=== PATIENT | male | born 1945 | race Caucasian/White ===

== ENCOUNTER 2018-12-14 09:11 | Inpatient (IN) | payer MEDICARE ==
[~2018-12-14] VITALS: Ht 175.3 cm; Wt 80.5 kg
[2018-12-14 09:51] LABS: BASOPHILS # (AUTO) 0.1 X10'3 (0-0.2); BASOPHILS % (AUTO) 0.8 % (0-1); EOSINOPHILS # (AUTO) 0.1 X10'3 (0-0.9); HEMATOCRIT 34.5 % (42.0-52.0); HEMOGLOBIN 11.9 g/dl (14.0-17.9); LYMPHOCYTES # (AUTO) 1.1 X10'3 (1.1-4.8); LYMPHOCYTES % (AUTO) 14.2 % (21-51); MEAN CORPUSCULAR HEMOGLOBIN 32.4 PG (27.0-31.0); MEAN CORPUSCULAR HGB CONC 34.4 g/dL (33.0-36.5); MEAN CORPUSCULAR VOLUME 94.3 FL (78-98); MEAN PLATELET VOLUME 7.3 FL (7.4-10.4); MONOCYTES # (AUTO) 0.7 X10'3 (0-0.9); MONOCYTES % (AUTO) 8.7 % (2-12); NEUTROPHILS # (AUTO) 5.6 X10'3 (1.8-7.7); NEUTROPHILS % (AUTO) 74.3 % (42-75); PLATELET COUNT 236 X10'3 (140-440); RED BLOOD COUNT 3.66 X10'6 (4.70-6.10); RED CELL DISTRIBUTION WIDTH 13.4 % (11.5-14.5); WHITE BLOOD COUNT 7.5 X10'3 (4.5-11.0)
[2018-12-14] MEDS ORDERED: diltiazem-D5W 125mg/125ml 125 ML IV ONE (09:59)
[2018-12-14] MEDS ORDERED: diltiazem 5mg/ml 5ml inj. IV ONE (10:00)
[2018-12-14] MEDS ORDERED: furosemide 10 MG/1 ML 10ml inj IV ONE (10:05)
[2018-12-14 11:24] LABS: ALANINE AMINOTRANSFERASE 109 U/L (12-78); ALBUMIN 2.9 G/DL (3.4-5.0); ALBUMIN/GLOBULIN RATIO 0.7 (1.1-1.5); ALKALINE PHOSPHATASE 111 IU/L (46-116); ANION GAP 11 (8-16); ASPARTATE AMINO TRANSFERASE 56 U/L (10-37); BILIRUBIN,TOTAL 0.8 MG/DL (0.1-1.0); BLOOD UREA NITROGEN 22 MG/DL (7-18); BUN/CREATININE RATIO 17.6 (5.4-32.0); CALCIUM 9.1 MG/DL (8.5-10.1); CHLORIDE 104 MMOL/L (99-107); CREATININE 1.25 MG/DL (0.60-1.10); GLUCOSE 233 MG/DL (70-104); SODIUM 140 MMOL/L (135-145); TOTAL CARBON DIOXIDE 24.8 MMOL/L (24-32); eGFR 57 ML/MIN
--- NOTE | 2018-12-14 11:34 | NUR ---
REFER TO PAPER CHARTING FROM 1O AM TO 1130 TODAY.
[2018-12-14] MEDS ORDERED: diltiazem-D5W 125mg/125ml 125 ML IV SCH (11:55)
[2018-12-14] MEDS ORDERED: ipratropium/albuterol 3ml nebule NEB PRN (11:55)
[2018-12-14] MEDS ORDERED: AMLO10TA PO (12:02)
[2018-12-14] MEDS ORDERED: METF1000 PO (12:02)
[2018-12-14] MEDS ORDERED: LOSA50TA3 PO (12:02)
[2018-12-14] MEDS ORDERED: SPIR25TA5 PO (12:02)
[2018-12-14] MEDS ORDERED: diltiazem-NS 100mg/100ml 125 ML IV SCH (12:07)
[2018-12-14] MEDS ORDERED: diltiazem-NS 100mg/100ml 100 ML IV ONE (12:10)
[2018-12-14 12:44] LABS: PARTIAL THROMBOPLASTIN TIME 39 SECONDS (22-32)
[2018-12-14] MEDS: diltiazem-NS 100mg/100ml 100 ML IV SCH (13:30)
[2018-12-14] MEDS ORDERED: HYDROcodone/acetaminophen 5mg/325mg tablet PO PRN (15:20)
[2018-12-14] MEDS ORDERED: potassium CL 10mEq/100ml bag 100 ML IV PRN ×2 (15:20)
[2018-12-14] MEDS ORDERED: metoclopramide 5 mg/ml inj IV PRN (15:20)
[2018-12-14] MEDS ORDERED: HYDROcodone/acetaminophen 10/325mg tab PO PRN (15:20)
[2018-12-14] MEDS ORDERED: potassium Cl 20 mEq SR tablet PO PRN ×2 (15:20)
[2018-12-14] MEDS ORDERED: magnesium 4gm in 100ml NS 100 ML IV PRN (15:20)
[2018-12-14] MEDS ORDERED: magnesium Cl slow-release 64mg tablet PO PRN (15:20)
[2018-12-14] MEDS ORDERED: magnesium 2GM in 50ml NS 50 ML IV PRN (15:20)
[2018-12-14] MEDS ORDERED: acetaminophen 325mg tablet PO PRN ×2 (15:20)
[2018-12-14] MEDS ORDERED: ondansetron/PF 4mg/2ml inj IV PRN (15:20)
[2018-12-14] MEDS ORDERED: bisacodyl 10mg suppository rectal RC PRN (15:20)
[2018-12-14] MEDS ORDERED: mag hydrox/Alum hydrox/simeth 30ml oral suspension PO PRN (15:20)
[2018-12-14] MEDS ORDERED: magnesium hydroxide 30ml (MOM) UD suspension PO PRN (15:20)
[2018-12-14] MEDS ORDERED: dextrose ORAL solution 15 GM/59 ML bottle PO PRN ×2 (15:35)
[2018-12-14] MEDS ORDERED: MESSAGE TO PHARMACY PO ONE (15:35)
[2018-12-14] MEDS ORDERED: glucagon, human recombinant 1mg kit SUBCUT PRN (15:35)
[2018-12-14] MEDS ORDERED: dextrose 50%-water 50ml dispensing syringe IV PRN ×2 (15:35)
[2018-12-14 16:27] LABS: PHOSPHORUS 2.9 MG/DL (2.3-4.5)
[2018-12-14 16:35] LABS: HEMOGLOBIN A1C 7.2 % (4.5-6.2)
--- NOTE | 2018-12-14 16:42 | NUR ---
HEALTH SUPPORT SPECIALIST IN ROOM FOR PROCEDURE.
--- NOTE | 2018-12-14 17:07 | NUR ---
DR FRIEND IN ROOM TO EVAL PT. ORDERS GIVEN FOR ABX FOR PNEUMONIA. NOTIFY DR REGARDING HAVING TO INCREASE THE OXYGEN TO KEEP SATS ELEVATED.
[2018-12-14] MEDS: CefTRIAXone/D5W-Rocephin 1gm 50 ML IV SCH ×3 (17:12→21:57)
--- NOTE | 2018-12-14 18:46 | NUR ---
Patient in room . I have received report from Kiley HENNESSY ED and had the opportunity to ask questions and assume patient care.
--- NOTE | 2018-12-14 18:50 | NUR ---
pt arrived on unit with all belongings, mobile tele monitor attached, visitor at bedside, oriented to room and unit, call light given
[2018-12-14 19:00] VITALS: BP 146/81
[2018-12-14 21:00] VITALS: BP 155/99
[2018-12-14] MEDS: insulin glargine (Lantus) pen - multi-dose SQ SCH (21:00)
[2018-12-14] MEDS ORDERED: temazepam 15mg capsule PO PRN (21:00)
[2018-12-14] MEDS: furosemide 40mg/4ml inj IV SCH (21:26)
[2018-12-14 23:00] VITALS: BP 149/97
[2018-12-15] VITALS (8 sets, daily range): BP systolic 122–151; BP diastolic 72–97
[2018-12-15] MEDS: diltiazem-NS 100mg/100ml 100 ML IV SCH ×2 (02:05→15:14)
[2018-12-15 05:22] LABS: HEMATOCRIT 31.4 % (42.0-52.0); HEMOGLOBIN 11.2 g/dl (14.0-17.9); MEAN CORPUSCULAR HGB CONC 35.6 g/dL (33.0-36.5); MEAN CORPUSCULAR VOLUME 92.6 FL (78-98); MEAN PLATELET VOLUME 7.1 FL (7.4-10.4); PLATELET COUNT 246 X10'3 (140-440); RED BLOOD COUNT 3.39 X10'6 (4.70-6.10); WHITE BLOOD COUNT 6.5 X10'3 (4.5-11.0)
[2018-12-15 05:38] LABS: ALBUMIN 2.7 G/DL (3.4-5.0); ANION GAP 10 (8-16); BLOOD UREA NITROGEN 20 MG/DL (7-18); BUN/CREATININE RATIO 16.5 (5.4-32.0); CALCIUM 8.5 MG/DL (8.5-10.1); CHLORIDE 107 MMOL/L (99-107); CHOL/HDL RATIO 5.6 (0.00-4.99); CHOLESTEROL 207 MG/DL (0-200); CREATININE 1.21 MG/DL (0.60-1.10); GLUCOSE 157 MG/DL (70-104); HDL CHOLESTEROL 37 MG/DL (35-60); LDL CHOLESTEROL 145 MG/DL (50-100); MAGNESIUM 1.5 MG/DL (1.5-2.4); PHOSPHORUS 3.8 MG/DL (2.3-4.5); POTASSIUM 3.7 MMOL/L (3.5-5.1); SODIUM 143 MMOL/L (135-145); TOTAL CARBON DIOXIDE 26.5 MMOL/L (24-32); TRIGLYCERIDES 122 MG/DL (20-135); eGFR 59 ML/MIN
--- NOTE | 2018-12-15 06:20 | NUR ---
Problems reprioritized. Patient report given, questions answered & plan of care reviewed with Stacy HENNESSY.
--- NOTE | 2018-12-15 06:27 | NUR ---
Patient in room PCU 3022. I have received report from Adrian RN and had the opportunity to ask questions and assume patient care.
[2018-12-15] MEDS: K and/or MAG REPLACEMENT MC SCH (07:35)
[2018-12-15] MEDS: furosemide 40mg/4ml inj IV SCH ×2 (08:52→21:33)
[2018-12-15] MEDS: spironolactone 25 MG tablet PO SCH (08:52)
[2018-12-15] MEDS: enoxaparin 40mg/0.4ml syringe SQ SCH (08:55)
--- NOTE | 2018-12-15 11:27 | NUR ---
DM consult: Pt with A1c 7.2 seen at bedside. Pt reports seeing an MD for MD management q 3 months, states he takes his meds per rx, and checks his BG infrequently. Pt states he used to check his BG levels more often however doesn't do it as much now, but he is aware that he should be checking more often. Pt with no questions about DM management at this time. Written DM ed with referral to outpatient DM class and RD contact information provided. Pt endorses a good appetite and denies food allergies, difficulty chewing/swallowing, or constipation/diarrhea. Will continue to follow. Addendum: 12/15/18 at [address] Amended: Links added.
[2018-12-15] MEDS: diltiazem 30mg tablet PO SCH ×2 (13:37→21:33)
[2018-12-15] MEDS: atorvastatin 20mg tablet PO SCH (13:37)
[2018-12-15] MEDS: insulin Lispro (HumaLOG) vial - multi-dose SQ SCH ×2 (14:16→19:31)
--- NOTE | 2018-12-15 18:35 | NUR ---
Patient in room PCU 3022. I have received report from Stacy HENNESSY and had the opportunity to ask questions and assume patient care.
[2018-12-15] MEDS: lactobacillus rhamnosus 10,000 MMU CELLS/CAPSULE PO SCH (21:33)
[2018-12-15] MEDS: insulin glargine (Lantus) pen - multi-dose SQ SCH (22:13)
[2018-12-16] VITALS (7 sets, daily range): BP systolic 122–151; BP diastolic 67–93
[2018-12-16] MEDS: diltiazem 30mg tablet PO SCH ×4 (02:50→20:07)
[2018-12-16] MEDS: diltiazem-NS 100mg/100ml 100 ML IV SCH (03:13)
[2018-12-16 05:55] LABS: ALBUMIN 2.6 G/DL (3.4-5.0); ANION GAP 7 (8-16); BLOOD UREA NITROGEN 25 MG/DL (7-18); BUN/CREATININE RATIO 19.1 (5.4-32.0); CALCIUM 8.8 MG/DL (8.5-10.1); CHLORIDE 107 MMOL/L (99-107); CREATININE 1.31 MG/DL (0.60-1.10); GLUCOSE 149 MG/DL (70-104); MAGNESIUM 1.8 MG/DL (1.5-2.4); POTASSIUM 3.6 MMOL/L (3.5-5.1); SODIUM 143 MMOL/L (135-145); TOTAL CARBON DIOXIDE 28.7 MMOL/L (24-32); eGFR 54 ML/MIN
[2018-12-16 06:01] LABS: HEMATOCRIT 33.5 % (42.0-52.0); HEMOGLOBIN 11.6 g/dl (14.0-17.9); MEAN CORPUSCULAR HEMOGLOBIN 32.4 PG (27.0-31.0); MEAN CORPUSCULAR HGB CONC 34.6 g/dL (33.0-36.5); MEAN CORPUSCULAR VOLUME 93.5 FL (78-98); MEAN PLATELET VOLUME 6.8 FL (7.4-10.4); PLATELET COUNT 276 X10'3 (140-440); RED BLOOD COUNT 3.58 X10'6 (4.70-6.10); RED CELL DISTRIBUTION WIDTH 12.9 % (11.5-14.5); WHITE BLOOD COUNT 6.7 X10'3 (4.5-11.0)
--- NOTE | 2018-12-16 06:26 | NUR ---
Problems reprioritized. Patient report given, questions answered & plan of care reviewed with Stacy HENNESSY.
[2018-12-16] MEDS: K and/or MAG REPLACEMENT MC SCH (07:12)
[2018-12-16] MEDS: furosemide 40mg/4ml inj IV SCH ×2 (08:35→20:06)
[2018-12-16] MEDS: spironolactone 25 MG tablet PO SCH (08:36)
[2018-12-16] MEDS: enoxaparin 40mg/0.4ml syringe SQ SCH (08:36)
[2018-12-16] MEDS: lactobacillus rhamnosus 10,000 MMU CELLS/CAPSULE PO SCH ×2 (08:36→20:06)
[2018-12-16] MEDS: atorvastatin 20mg tablet PO SCH (08:37)
[2018-12-16] MEDS: insulin Lispro (HumaLOG) vial - multi-dose SQ SCH ×2 (08:50→20:13)
[2018-12-16] MEDS: CefTRIAXone/D5W-Rocephin 1gm 50 ML IV SCH (08:57)
--- NOTE | 2018-12-16 09:29 | NUR ---
Page to Nepo. TRIPP PAGER ID: [phone] MESSAGE: Pt. T. Justus Rm 3022 had a one time ventricular event/ 5 beat run of VT. Pt. was asymptomatic. he continues today on Cardi drip at 2.5mg/hr. HR of 118. Thank You Stacy HENNESSY [phone]
--- NOTE | 2018-12-16 10:00 | NUR ---
Zuly TRIPP to bedside for assessment of Pt. Orders received. Electrolytes and Anarithmics.
[2018-12-16] MEDS ORDERED: potassium Cl 20 mEq SR tablet PO STA (10:17)
[2018-12-16] MEDS ORDERED: diltiazem 30mg tablet PO ONE (10:20)
[2018-12-16] MEDS ORDERED: magnesium 2GM in 50ml NS 50 ML IV ONE (10:20)
--- NOTE | 2018-12-16 14:26 | NUR ---
Poor appetite Addendum: 12/16/18 at 1427 by Stacy Kiran RN Amended: Links added.
--- NOTE | 2018-12-16 15:05 | NUR ---
[id number] MESSAGE: Micheal Jerome HR is 80-90 and SBP 112 do you still want 90 of Cardizem 2PM dose plus the Cardizem drip running at 2.5mg/hr?
--- NOTE | 2018-12-16 18:40 | NUR ---
Patient in room PCU 3022. I have received report from Stacy HENNESSY and had the opportunity to ask questions and assume patient care. Checked on patient, he is visiting with his , will continue to monitor.
--- NOTE | 2018-12-16 18:47 | NUR ---
Problems reprioritized. Patient report given, questions answered & plan of care reviewed with Lorie HENNESSY.
[2018-12-16] MEDS: apixaban 5mg tablet PO SCH (20:06)
[2018-12-16] MEDS: insulin glargine (Lantus) pen - multi-dose SQ SCH (21:41)
[2018-12-17] MEDS: diltiazem 30mg tablet PO SCH ×2 (01:46→07:59)
[2018-12-17 03:00] VITALS: BP 142/74
[2018-12-17 05:29] LABS: HEMATOCRIT 35.3 % (42.0-52.0); HEMOGLOBIN 12.5 g/dl (14.0-17.9); MEAN CORPUSCULAR HEMOGLOBIN 32.4 PG (27.0-31.0); MEAN CORPUSCULAR HGB CONC 35.3 g/dL (33.0-36.5); MEAN CORPUSCULAR VOLUME 91.7 FL (78-98); MEAN PLATELET VOLUME 6.3 FL (7.4-10.4); PLATELET COUNT 326 X10'3 (140-440); RED BLOOD COUNT 3.85 X10'6 (4.70-6.10); RED CELL DISTRIBUTION WIDTH 12.6 % (11.5-14.5); WHITE BLOOD COUNT 9.4 X10'3 (4.5-11.0)
[2018-12-17 05:45] LABS: ALBUMIN 2.7 G/DL (3.4-5.0); ANION GAP 11 (8-16); BLOOD UREA NITROGEN 28 MG/DL (7-18); BUN/CREATININE RATIO 20.3 (5.4-32.0); CALCIUM 8.5 MG/DL (8.5-10.1); CHLORIDE 107 MMOL/L (99-107); CREATININE 1.38 MG/DL (0.60-1.10); GLUCOSE 135 MG/DL (70-104); PHOSPHORUS 4.2 MG/DL (2.3-4.5); SODIUM 142 MMOL/L (135-145); TOTAL CARBON DIOXIDE 24.4 MMOL/L (24-32); eGFR 51 ML/MIN
--- NOTE | 2018-12-17 06:25 | NUR ---
Problems reprioritized. Patient report given, questions answered & plan of care reviewed with Abigail HENNESSY.
--- NOTE | 2018-12-17 06:28 | NUR ---
Patient in room PCU 3022. I have received report from Lorie and had the opportunity to ask questions and assume patient care.
[2018-12-17 06:30] VITALS: BP 131/74
[2018-12-17] MEDS: K and/or MAG REPLACEMENT MC SCH (06:31)
[2018-12-17] MEDS: lactobacillus rhamnosus 10,000 MMU CELLS/CAPSULE PO SCH (07:59)
[2018-12-17] MEDS: spironolactone 25 MG tablet PO SCH (07:59)
[2018-12-17] MEDS: atorvastatin 20mg tablet PO SCH (07:59)
[2018-12-17] MEDS: apixaban 5mg tablet PO SCH (07:59)
[2018-12-17] MEDS: insulin Lispro (HumaLOG) vial - multi-dose SQ SCH (08:27)
[2018-12-17 08:30] VITALS: BP 125/65
[2018-12-17] MEDS ORDERED: ATOR20TA66 PO (09:50)
[2018-12-17] MEDS ORDERED: FURO20TA4 PO (09:50)
[2018-12-17] MEDS ORDERED: APIX5TAB3 PO (09:50)
[2018-12-17] MEDS ORDERED: DILT30TA5 PO (09:50)
[2018-12-17] MEDS ORDERED: CEFD300C3 PO (09:50)
[2018-12-17] MEDS ORDERED: LOSA25TA96 PO (09:51)
--- NOTE | 2018-12-17 10:38 | NUR ---
Medications called in to [facility] on [address]. Spoke with Pedro. Follow up appointments and home medications gone over with pt and in detail. They both verbalize understanding. IV dc'd. Discharged in stable condition with .
== END 2018-12-17 10:25 | disposition home or self-care (01) | DRG 291 ==
LOC: ER 09:11 → PCU 3S 19:06 → OBSVTOIN 19:06 → CMPBEDREQ 19:54 → PCU 3S 20:10
PROVIDERS: ADMIT Family Medicine; ATTEND Family Medicine
DX: I13.0 Hypertensive heart and chronic kidney disease with heart failure and stage 1 through stage 4 chronic kidney disease, or unspecified chronic kidney disease (principal); I50.21 Acute systolic (congestive) heart failure; J18.9 Pneumonia, unspecified organism; Q21.1 Atrial septal defect; I48.91 Unspecified atrial fibrillation; E11.22 Type 2 diabetes mellitus with diabetic chronic kidney disease; E78.5 Hyperlipidemia, unspecified; N18.9 Chronic kidney disease, unspecified; N40.0 Benign prostatic hyperplasia without lower urinary tract symptoms; Z79.84 Long term (current) use of oral hypoglycemic drugs; Z79.899 Other long term (current) drug therapy; Z87.891 Personal history of nicotine dependence
CPT/HCPCS: 36415; 71045; 80048; 80053; 80061; 82948; 83036; 83735; 84100; 84443; 84484; 85025; 85027; 85379; 85610; 85730; 87081; 93005; 93306; 94760; 96374; 99285; G0378; J0696; J1650; J1815; J1940; J3475; J3490

== ENCOUNTER 2019-04-04 14:03 | Day surgery (SDC) | payer MEDICARE ==
[~2019-04-04] VITALS: Ht 175.3 cm; Wt 84.1 kg
[2019-04-04] VITALS (13 sets, daily range): BP systolic 119–149; BP diastolic 71–91
[~2019-04-04 14:03] MED LIST: APIX5TAB3 PO; ATOR20TA66 PO; DILT30TA5 PO; FURO20TA4 PO; METF1000 PO; SPIR25TA5 PO
[2019-04-04] MEDS ORDERED: normal saline 1000ml 1,000 ML IV SCH (14:25)
[2019-04-04] MEDS ORDERED: fentaNYL/PF 50MCG/1 ML 2ML syringe IV ONE (14:25)
[2019-04-04] MEDS ORDERED: MIDAZolam 5mg/ml 2ml vial IV ONE (14:25)
[2019-04-04 14:56] LABS: BASOPHILS # (AUTO) 0.1 X10'3 (0-0.2); BASOPHILS % (AUTO) 0.9 % (0-1); EOSINOPHILS # (AUTO) 0.2 X10'3 (0-0.9); EOSINOPHILS % (AUTO) 2.3 % (0-6); HEMATOCRIT 36.7 % (42.0-52.0); HEMOGLOBIN 12.7 g/dl (14.0-17.9); LYMPHOCYTES # (AUTO) 1.6 X10'3 (1.1-4.8); LYMPHOCYTES % (AUTO) 20.1 % (21-51); MEAN CORPUSCULAR HEMOGLOBIN 32.2 PG (27.0-31.0); MEAN CORPUSCULAR HGB CONC 34.6 g/dL (33.0-36.5); MEAN CORPUSCULAR VOLUME 93.1 FL (78-98); MEAN PLATELET VOLUME 7.6 FL (7.4-10.4); MONOCYTES # (AUTO) 0.8 X10'3 (0-0.9); NEUTROPHILS # (AUTO) 5.4 X10'3 (1.8-7.7); NEUTROPHILS % (AUTO) 66.7 % (42-75); PLATELET COUNT 237 X10'3 (140-440); RED BLOOD COUNT 3.94 X10'6 (4.70-6.10); RED CELL DISTRIBUTION WIDTH 13.6 % (11.5-14.5); WHITE BLOOD COUNT 8.1 X10'3 (4.5-11.0)
[2019-04-04] MEDS ORDERED: APIX5TAB3 PO (14:58)
[2019-04-04] MEDS ORDERED: LOSA25TA96 PO (14:58)
[2019-04-04] MEDS ORDERED: FURO-150 PO (14:58)
[2019-04-04 15:08] LABS: ALBUMIN 3.9 G/DL (3.4-5.0); ANION GAP 13 (8-16); BLOOD UREA NITROGEN 29 MG/DL (7-18); BUN/CREATININE RATIO 20.7 (5.4-32.0); CALCIUM 9.6 MG/DL (8.5-10.1); CHLORIDE 104 MMOL/L (99-107); GLUCOSE 167 MG/DL (70-104); POTASSIUM 4.5 MMOL/L (3.5-5.1); SODIUM 139 MMOL/L (135-145); TOTAL CARBON DIOXIDE 21.8 MMOL/L (24-32); eGFR 50 ML/MIN
[2019-04-04] MEDS ORDERED: CARSR60C PO (18:45)
== END 2019-04-04 18:25 | disposition home or self-care (01) ==
LOC: SSTAY O 14:03
PROVIDERS: ATTEND Internal Medicine Interventional Cardiology
DX: I48.91 Unspecified atrial fibrillation (principal); I11.0 Hypertensive heart disease with heart failure; I50.21 Acute systolic (congestive) heart failure; E11.319 Type 2 diabetes mellitus with unspecified diabetic retinopathy without macular edema; Z87.891 Personal history of nicotine dependence; Z79.899 Other long term (current) drug therapy; Z79.84 Long term (current) use of oral hypoglycemic drugs
CPT/HCPCS: 36415; 80048; 82948; 85025; 85610; 92960; 94760; J2250; J3010; J7030; 93005

== ENCOUNTER 2025-02-02 11:53 | Day surgery (SDC) | payer MEDICARE, MEDICAID ==
[2025-01-26 14:02] LABS: MEAN PLATELET VOLUME 7.9 FL (7.4-10.4); PRE OP HEMATOCRIT 39.1 % (42.0-52.0); PRE OP HEMOGLOBIN 13.0 g/dL (14.0-17.9); PRE OP PLATELET COUNT 256 X10'3 (140-440); PRE OP WHITE BLOOD COUNT 6.0 10'3 (4.8-10.8); RED CELL DISTRIBUTION WIDTH 13.6 % (11.5-14.5)
[2025-01-26 14:12] LABS: CREATININE 1.46 MG/DL (0.60-1.10); PRE OP ALT 35 U/L (30-65); PRE OP ANION GAP 7 (8-16); PRE OP AST 28 U/L (10-37); PRE OP BILIRUB, TOTAL 0.7 MG/DL (0.0-1.0); PRE OP GLUCOSE 153 MG/DL (70-104); PRE OP POTASSIUM 4.6 MMOL/L (3.4-5.1); PRE OP SODIUM 144 MMOL/L (135-145); TOTAL CARBON DIOXIDE 25.6 MMOL/L (24-32); eGFR 47 ML/MIN
[2025-02-02] VITALS (15 sets, daily range): BP systolic 145–185; BP diastolic 80–124; PULSE 44–69; RESP 12–26; TEMP 98.1–98.6; O2SAT 90–99
[~2025-02-02] VITALS: Ht 175.3 cm; Wt 71.8 kg
[2025-02-02] MEDS: ceFAZolin 2gm/dext,iso 50mL 50 ML IV ONE (05:30)
[~2025-02-02 11:53] MED LIST changes: -ATOR20TA66 PO; +ATOR40TA72 PO; -DILT30TA5 PO; +DOCUMENT DATE & TIME OF BETA-BLOCKER PO ONE; +EMPA10TA PO; -FURO20TA4 PO; +HYDROmorphone/PF 0.2 MG/ML SYRINGE IV PRN; +METO-395 PO; +SACU1TAB7 PO; +enalaprilat 1.25mg/ml 2ml vial IV PRN; +fentaNYL/PF 50MCG/1 ML 2ML syringe IV PRN; +labetalol 20mg/4ml (5mg/ml) syringe IV PRN; +morphine 4 MG/ML inj SYRINge IV PRN; +ondansetron/PF 4mg/2ml inj IV PRN; +ringers solution, lacted 1,000 ML IV SCH
[2025-02-02] MEDS: ringers solution, lacted 1,000 ML IV SCH (12:47)
[2025-02-02] MEDS ORDERED: midazolam 1 mg/ML 2ml injection ONE (13:55)
[2025-02-02] MEDS ORDERED: LIDOcaine 1% 30ml preserv. free vial ONE (13:55)
[2025-02-02] MEDS ORDERED: BUPIVAcaine 2.5mg/ml inj 50ml vial (contains preservative) ONE (13:55)
[2025-02-02] MEDS ORDERED: fentaNYL/PF 50MCG/1 ML 2ML syringe ONE (13:55)
[2025-02-02] MEDS ORDERED: propofol inj 20 ML IV ONE (14:30)
[2025-02-02] MEDS ORDERED: ondansetron/PF 4mg/2ml inj ONE (14:30)
[2025-02-02] MEDS ORDERED: rocuronium 10mg/ml inj IV ONE (14:30)
[2025-02-02] MEDS ORDERED: LIDOcaine 1%/PF 5ML 10 MG/ML VIAL ONE (14:30)
[2025-02-02] MEDS ORDERED: glycopyrrolate 0.2mg/ml inj ONE (14:30)
[2025-02-02] MEDS: LIDOcaine 1% 30ml preserv. free vial IJ ONE (14:34)
[2025-02-02] MEDS ORDERED: dexamethasone sod phosphate 4mg/ml inj. ONE (14:34)
[2025-02-02] MEDS: BUPIVAcaine/PF 2.5 mg/ml (0.25%) 30ml vial IJ ONE (14:34)
[2025-02-02] MEDS: fentaNYL/PF 50MCG/1 ML 2ML syringe IV PRN (16:03)
--- NOTE | 2025-02-02 16:08 | OPERATIVE REPORT ---
Operative Report Providers to CC: FLACO TREJO MD ~ Date of Procedure: Feb 02, 2025 Pre-Operative Diagnosis: Bilateral inguinal hernia, umbilical hernia Post-Operative Diagnosis 3 cm umbilical hernia Bilateral inguinal hernias Procedure Performed 3 cm umbilical hernia repair with mesh Robotic assisted, laparoscopic bilateral inguinal hernia repair with mesh Surgeon: Flaco Trejo MD FACS [employer] None Anesthesiologist: Dangelo Krause Type of Anesthesia: General Findings: Umbilical hernia, with a 3 cm fascial defect [id number] indirect right inguinal hernia Moderate-sized indirect left inguinal hernia Wound class I Complications None Prosthetics\Implants used: Small Ventralex ST umbilical hernia mesh Bilateral large Dextile inguinal hernia mesh Estimated Blood Loss: Minimal Specimen Removed: Hernia sac excised and discarded from the umbilical hernia Description of Procedure: Patient was brought to the operating room and identified by the nursing staff and the attending physician. Patient was placed supine and general anesthesia was induced. The patient's abdomen was prepped and draped in the standard sterile fashion. Preoperative antibiotics were given. There was an obvious, moderate-sized umbilical hernia. Supraumbilical, midline incision was made to accommodate a 12 mm Espinal port. Hernia sac was encountered and mobilized away from the umbilical dermis. Excess hernia sac was excised at the fascia, revealing a 3 cm fascial defect. Defect was used for the Espinal port. Espinal technique was used to gain access into the abdomen and the port was anchored to the fascia with 0 Vicryl suture. Abdomen was insufflated without incident. La paroscope was inserted and the pelvis examined. Patient was placed in Trendelenburg position. Secondary, 8.5 mm robotic trochars were then placed in the right lateral left lateral upper abdomen just above the umbilical line. These were placed under laparoscopic guidance. Local anesthetic was infiltrated prior to their insertion. The da Esteban robotic arm was docked to the patient. Instruments were guided intra-abdominally under laparoscopic visualization. Peritoneal rent was created starting at the left anterior superior iliac spine and carried across the anterior abdominal wall to the contralateral anterior superior iliac spine. The peritoneal flap was created and carried down to the symphysis pubis. Dissection was carried out bilaterally. On the left, a moderate-sized indirect inguinal hernia was encountered. Its contents were completely reduced. On the right, there was a large indirect inguinal hernia extending into the deep inguinal canal. This was slowly mobilized away from the cord structures and completely reduced. Peritoneum was dissected away from the cord structures and out laterally to accommodate 2 separate pieces of large Dextile mesh. Bilateral critical views of the myopectineal orifice were obtained. Mesh and suture was passed into the abdomen. Bilateral mesh was placed covering potential obturator, femoral, direct, and indirect hernia spaces. Mesh was anchored at Chago's ligament, rectus muscle in the midline, and out laterally just anterior to the anterior superior iliac spine. Mesh laid without wrinkles or folds. Peritoneal rent was then reapproximated with running, absorbable 2/0 V-lock suture. [place] were retrieved. Abdomen was allowed to desufflate after instruments removed and da Esteban robotic arm undocked from the patient. Umbilical port was removed as were the secondary trochars. A small Ventralex umbilical hernia mesh with ST coating was passed through the fascial defect and secured circumferentially with 0 Ethibond sutures with the knots buried beneath the fascia. The fascia at the umbilical port site was closed with 0 Vicryl sutures over the mesh. Skin was closed at all sites with 4-0 Monocryl sutures in a subcuticular fashion. Sterile dressings were applied. Patient was awakened and taken to the postanesthesia care unit in stable condition. Counts repoted as correct: Yes FLACO TREJO MD Feb 02, 2025 16:08
[2025-02-02] MEDS: HYDROcodone/acetaminophen 5mg/325mg tablet PO PRN (16:48)
== END 2025-02-02 18:16 | disposition home or self-care (01) ==
LOC: PAS 11:53
PROVIDERS: ATTEND Surgery
DX: K40.20 Bilateral inguinal hernia, without obstruction or gangrene, not specified as recurrent (principal); K42.9 Umbilical hernia without obstruction or gangrene; I11.0 Hypertensive heart disease with heart failure; I50.9 Heart failure, unspecified; E11.42 Type 2 diabetes mellitus with diabetic polyneuropathy; E11.51 Type 2 diabetes mellitus with diabetic peripheral angiopathy without gangrene; E78.5 Hyperlipidemia, unspecified; I48.91 Unspecified atrial fibrillation; Z79.01 Long term (current) use of anticoagulants; Z79.84 Long term (current) use of oral hypoglycemic drugs; Z79.899 Other long term (current) drug therapy; Z83.3 Family history of diabetes mellitus
CPT/HCPCS: 36415; 49593; 49650; 80053; 82948; 85025; A4215; A4314; A4615; A4618; C1781; J1100; J2003; J2250; J2405; J2704; J3010; J3490; J7030; J7120; Z7506; Z7508; Z7512; Z7610